=== PATIENT | female | born 1990 | race Asian ===

== ENCOUNTER 2018-11-22 18:27 | Emergency (ER) | payer BC ==
[~2018-11-22] VITALS: Ht 162.6 cm; Wt 59.0 kg
[2018-11-22 18:27] VITALS: BP 143/76
[2018-11-22] MEDS ORDERED: PHENAZOPYRIDINE HCL 200 MG TABLET ONE (18:50)
[2018-11-22 18:54] LABS: APPEARANCE,URINE Slightly Cloudy (CLEAR); BILIRUBIN,URINE Negative (NEGATIVE); BLOOD, URINE Negative Ery/uL (NEGATIVE); COLOR,URINE Yellow (YELLOW); KETONES,URINE Negative (NEGATIVE); LEUKOCYTE ESTERASE ,URINE Moderate (NEGATIVE); NITRITE, URINE Negative (NEGATIVE); PH,URINE 7.5 (5.0-8.0); PROTEIN,URINE Negative (NEGATIVE); UGLUCOSE Negative (NEGATIVE); UROBILINOGEN,URINE 0.2 EU/dL (0.2)
[2018-11-22] MEDS ORDERED: PHENAZOPYRIDINE HCL 200 MG TABLET PO ONE (19:00)
[2018-11-22 19:15] LABS: RBC,URINE 0-2 /HPF (0-2)
[2018-11-22 19:16] LABS: BACTERIA,URINE Few /HPF (None Seen); SQUAMOUS EPITHELIAL CELL,UR Few /HPF (None Seen)
== END 2018-11-22 19:30 | disposition home or self-care (01) ==
LOC: ER 18:32
DX: N39.0 Urinary tract infection, site not specified (principal)
CPT/HCPCS: 81001; 84703; 87086; 99283; A4606; 81000-TC